=== PATIENT | male | born 1980 | race Caucasian/White ===

== ENCOUNTER 2019-07-11 22:54 | Emergency (ER) | payer MEDICAID ==
[~2019-07-11] VITALS: Ht 185.4 cm; Wt 81.6 kg
[2019-07-11] MEDS ORDERED: ONDANSETRON 4 MG/2 ML VIAL ONE (23:22)
[2019-07-11] MEDS ORDERED: KETOROLAC TROMETHAMINE 30 MG INJ ONE (23:22)
[2019-07-11] MEDS ORDERED: IV NORMAL SALINE 1000 ML BAG IV ONE (23:30)
[2019-07-11] MEDS ORDERED: ONDANSETRON 4 MG/2 ML VIAL IV ONE (23:30)
[2019-07-11] MEDS ORDERED: KETOROLAC TROMETHAMINE 30 MG INJ IVP ONE (23:30)
[2019-07-11] MEDS ORDERED: HYDROMORPHONE 1 MG/1 ML DISP.SYRIN IV ONE (23:30)
[2019-07-11 23:46] LABS: BASOPHILS % (AUTO) 0.3 % (0.0-2.0); EOSINOPHILS % (AUTO) 0.1 % (0.0-7.0); HEMATOCRIT 46.1 % (36.7-47.1); HEMOGLOBIN 15.3 g/dL (12.5-16.3); LYMPHOCYTES # (AUTO) 1.1 K/uL (20.0-40.0); LYMPHOCYTES % (AUTO) 9.8 % (20.5-51.5); MEAN CORPUSCULAR HEMOGLOBIN 27.1 uug (23.8-33.4); MEAN CORPUSCULAR HGB CONC 33 g/dL (32.5-36.3); MONOCYTES # (AUTO) 0.3 K/uL (2.0-10.0); MONOCYTES % (AUTO) 3.1 % (0.0-11.0); NEUTROPHILS # (AUTO) 9.5 K/uL (1.8-8.9); NEUTROPHILS % (AUTO) 86.7 % (38.5-71.5); PLATELET COUNT (AUTO) 304 K/uL (152-348); RED BLOOD CELL COUNT(AUTO) 5.62 MIL/uL (4.06-5.63)
[2019-07-11 23:48] LABS: POTASSIUM 3.6 mmol/L (3.5-5.1)
[2019-07-11 23:54] LABS: BILIRUBIN,DIRECT 0.1 mg/dL (0.0-0.2); BILIRUBIN,TOTAL 0.7 mg/dL (0.2-1.0); TOTAL PROTEIN, SERUM 8.4 g/dL (6.4-8.2)
--- NOTE | 2019-07-11 23:54 | NUR ---
Patient back from CT scan in stable condition
[2019-07-12] MEDS ORDERED: DICYCLOMINE HCL LIQ 10 MG/5 ML UDC PO ONE (00:15)
[2019-07-12] MEDS ORDERED: ONDANSETRON 4 MG/2 ML VIAL ONE ×2 (00:15→00:46)
[2019-07-12] MEDS: DICYCLOMINE HCL 20 MG TABLET PO SCH ×2 (00:15→01:55)
[2019-07-12] MEDS ORDERED: ONDANSETRON 4 MG/2 ML VIAL IV ONE ×2 (00:15→00:45)
[2019-07-12] MEDS ORDERED: DICYCLOMINE HCL LIQ 10 MG/5 ML UDC ONE (00:36)
--- NOTE | 2019-07-12 00:40 | NUR ---
Patient able to tolerate ice chips. Given small amount of liquid for PO challenge. Patient noted actively throwing up. Dr. Vasquez made aware with new orders received to administer 8mg of Zofran IVP.
[2019-07-12] MEDS ORDERED: ONDANSETRON ODT 4 MG TAB.RAPDIS SL ONE (00:45)
[2019-07-12] MEDS ORDERED: DICYCLOMINE HCL 10 MG CAPSULE ONE (01:12)
--- NOTE | 2019-07-12 01:17 | NUR ---
Patient states he still feels very nauseated / feels like throwing up after a few ice chips. Dr. Vasquez made aware and received new orders for Reglan 10mg IVP
[2019-07-12] MEDS ORDERED: METOCLOPRAMIDE HCL 10 MG/2 ML VIAL ONE (01:22)
[2019-07-12] MEDS ORDERED: METOCLOPRAMIDE HCL 10 MG/2 ML VIAL IV ONE (01:30)
--- NOTE | 2019-07-12 01:55 | NUR ---
Patient able to tolerate small amounts of liquid. Bentyl PO given. patient able to tolerate medication
--- NOTE | 2019-07-12 02:05 | NUR ---
IV removed. Catheter intact and site benign. Pressure and 4x4 gauze applied to site. No bleeding noted. Patient discharged to home in stable conditon. Written and verbal after care instructions given. Patient verbalizes understanding of instructions. Patient ambulating with steady gait
[2019-07-12 02:17] VITALS: BP 132/75
== END 2019-07-12 02:05 | disposition home or self-care (01) ==
LOC: ER 22:58
DX: K52.9 Noninfective gastroenteritis and colitis, unspecified (principal); Z88.1 Allergy status to other antibiotic agents
CPT/HCPCS: 36415; 74176; 80048; 80076; 83690; 85025; 96361; 96374; 96375 ×2; 96376; 99284; J1885; J2405 ×3; J2765; A4663; J7030